=== PATIENT | male | born 1990 | race Caucasian/White ===

== ENCOUNTER 2022-09-08 02:59 | Emergency (ER) | payer OTHER ==
[2022-09-08 03:14] VITALS: BP 153/95; PULSE 64; RESP 18; TEMP 98.3; BMI 39.3
[2022-09-08] MEDS ORDERED: LIDOCAINE 5% TOPICAL PATCH TP ONE (03:53)
[2022-09-08] MEDS ORDERED: ACETAMINOPHEN 325 MG TABLET (FP) PO ONE (03:56)
[2022-09-08] MEDS ORDERED: ACETAMINOPHEN 325 MG TABLET (FP) ONE (04:00)
[2022-09-08] MEDS ORDERED: LIDOCAINE 5% TOPICAL PATCH ONE (04:01)
[2022-09-08] MEDS ORDERED: DEXAMETHASONE SOD PHOSPHATE 10 MG/1 ML VIAL IM ONE (04:09)
[2022-09-08] MEDS ORDERED: KETOROLAC TROMETHAMINE 30 MG/1 ML VIAL IM ONE (04:09)
[2022-09-08] MEDS ORDERED: KETOROLAC TROMETHAMINE 15 MG/ML VIAL ONE (04:12)
[2022-09-08] MEDS ORDERED: DEXAMETHASONE SOD PHOSPHATE 10 MG/1 ML VIAL ONE (04:12)
== END 2022-09-08 04:29 | disposition home or self-care (01) ==
LOC: JER 02:59
PROC: 3E023GC Introduction of Other Therapeutic Substance into Muscle, Percutaneous Approach (ICD-10-PCS; principal; 2022-09-08)
PROC: 3E023GC Introduction of Other Therapeutic Substance into Muscle, Percutaneous Approach (ICD-10-PCS; 2022-09-08)
DX: M25.511 Pain in right shoulder (principal)
CPT/HCPCS: 99284-25; J1100

== ENCOUNTER 2022-12-19 21:15 | Emergency (ER) | payer OTHER ==
[2022-12-19 21:25] VITALS: BP 134/90; PULSE 93; RESP 16; TEMP 99.3; BMI 37.3
[2022-12-19] MEDS ORDERED: CLINDAMYCIN HCL 300 MG CAPSULE PO ONE (21:50)
[2022-12-19] MEDS ORDERED: CLINDAMYCIN HCL 150 MG CAPSULE (FP) ONE (21:53)
== END 2022-12-19 22:15 | disposition home or self-care (01) ==
LOC: FER 21:15
DX: R21 Rash and other nonspecific skin eruption (principal); L03.114 Cellulitis of left upper limb
CPT/HCPCS: 99283-25

== ENCOUNTER 2022-12-31 12:09 | Emergency (ER) | payer OTHER ==
[2022-12-31] MEDS ORDERED: IBUPROFEN 400 MG TABLET (FP) PO ONE ×2 (12:11→12:21)
[2022-12-31] MEDS ORDERED: LIDOCAINE 5% TOPICAL PATCH TP ONE (12:11)
[2022-12-31 12:16] VITALS: BP 137/90; PULSE 60; RESP 16; TEMP 98.2; BMI 36.8
[2022-12-31] MEDS ORDERED: LIDOCAINE 5% TOPICAL PATCH ONE (12:21)
[2022-12-31] MEDS ORDERED: LIDOCAINE PATCH REMOVAL MC SCH (22:00)
== END 2022-12-31 13:10 | disposition home or self-care (01) ==
LOC: FER 12:09
DX: M54.50 Low back pain, unspecified (principal)
CPT/HCPCS: 99283-25

== ENCOUNTER 2023-04-02 15:00 | Emergency (ER) | payer OTHER ==
[2023-04-02 15:30] VITALS: BP 142/83; PULSE 85; RESP 17; TEMP 98.5; BMI 37.3
[2023-04-02] MEDS ORDERED: CEPHALEXIN MONOHYDRATE 500 MG CAPSULE (UD) PO ONE (15:52)
[2023-04-02] MEDS ORDERED: SULFAMETHOXAZOLE/TRIMETHOPRIM 800MG/160MG D.S. TABLET PO ONE (15:53)
[2023-04-02] MEDS ORDERED: CEPHALEXIN MONOHYDRATE 500 MG CAPSULE (UD) ONE (15:56)
[2023-04-02] MEDS ORDERED: SULFAMETHOXAZOLE/TRIMETHOPRIM 800MG/160MG D.S. TABLET ONE (15:56)
[2023-04-02] MEDS ORDERED: IBUPROFEN 600 MG TABLET (FP) PO ONE (15:57)
== END 2023-04-02 16:07 | disposition home or self-care (01) ==
LOC: FER 15:00
DX: M25.521 Pain in right elbow (principal); L03.113 Cellulitis of right upper limb
CPT/HCPCS: 99283-25